=== PATIENT | male | born 1990 | race Two or more races ===

== ENCOUNTER 2019-07-18 06:45 | Observation (INO) | payer OTHER ==
[2019-07-18] VITALS (14 sets, daily range): BP systolic 120–157; BP diastolic 60–89
[~2019-07-18] VITALS: Ht 188 cm; Wt 100.2 kg
[~2019-07-18 06:45] MED LIST: NKM
[2019-07-18] MEDS ORDERED: Dexamethasone 20mg/5ml IVP ONE (07:00)
[2019-07-18] MEDS ORDERED: ceFAZolin sod 1 GM in NS 55 ML IVPB ONE (07:00)
[2019-07-18] MEDS ORDERED: Lidocaine 1% MPF 10mg/ml 5ml ONE ×2 (07:56→11:08)
[2019-07-18] MEDS ORDERED: Sodium Chloride 10ml vial INJ ONE (07:56)
[2019-07-18] MEDS ORDERED: Dexamethasone 4mg/ml vial ONE (07:56)
[2019-07-18] MEDS ORDERED: fentaNYL 100 mcg/2 mL IV ONE ×2 (07:59→10:40)
[2019-07-18] MEDS ORDERED: LR 1000ml 1,000 ML IVLG SCH (08:08)
--- NOTE | 2019-07-18 08:10 | Anethesia Preoperative Eval ---
Anesthesia Pre-op PMH/ROS General Date of Evaluation: Jul 18, 2019 Time of Evaluation: 09:09 Anesthesiologist: Negrito ASA Score: ASA 2 Mallampati Score Class I : Soft palate, uvula, fauces, pillars visible Class II: Soft palate, uvula, fauces visible Class III: Soft palate, base of uvula visible Class IV: Only hard plate visible Mallampati Classification: Class II Surgeon: Ailyn Diagnosis: Neck Pain Surgical Procedure: ACDF C6-7 Anesthesia History: none Family History: no anesthesia problems Allergies: Coded Allergies: No Known Allergies (Unverified , 07/18/19) Medications: see eMAR Patient NPO?: Yes NPO Date: Jul 17, 2019 NPO Time: 2300 Past Medical History Neurologic/Psychiatric: Reports: depression/anxiety Anesthesia Pre-op Phys. Exam Physician Exam Last Vital Signs Date Time Temp Pulse Resp B/P (MAP) Pulse Ox O2 Delivery O2 Flow Rate FiO2 07/18/19 07:45 Room Air 07/18/19 07:43 97.0 64 16 127/79 (95) 100 Constitutional: NAD Neurologic: CN 2-12 intact Cardiovascular: RRR Respiratory: CTA Gastrointestinal: S/NT/ND Airway Exam Mallampati Score: Class II MO: full ROM: full Teeth: intact Anesthesia Pre-op A/P Risk Assessment & Plan Assessment: ASA 2 Plan: GA, SED, GlideScope Go Status Change Before Surgery: No Pre-Antibiotics Dru Grams Ancef IV Given Within 1 Hr of Incision: Yes Time Given: 09:46 Shaji Mahan MD Jul 18, 2019 08:10
[2019-07-18] MEDS ORDERED: Ketorolac 30mg Inj IV PRN ×2 (08:15)
[2019-07-18] MEDS ORDERED: Labetalol 5mg/ml 20ml vial IV PRN (08:15)
[2019-07-18] MEDS ORDERED: LORazepam Inj 2mg/ml 1ml IV PRN (08:15)
[2019-07-18] MEDS ORDERED: DiphenhydrAMINE 50mg/ml Inj IVP PRN (08:15)
[2019-07-18] MEDS ORDERED: Midazolam 2mg/2ml Inj IVP PRN (08:15)
[2019-07-18] MEDS ORDERED: Acetaminophen (Non formulary) 100 ML IV ONE (08:15)
[2019-07-18] MEDS ORDERED: HYDROcodone/Acetamin 5/325 tab ORAL PRN (08:15)
[2019-07-18] MEDS ORDERED: Atropine Sulfate 0.4mg/ml inj IVP PRN (08:15)
[2019-07-18] MEDS ORDERED: Hydromorphone 0.5mg/0.5ml inj IVP PRN (08:15)
[2019-07-18] MEDS ORDERED: Meperidine 50mg/ml Inj(FOR RIGORS ONLY) IVP PRN (08:15)
[2019-07-18] MEDS ORDERED: oxyCODONE HCL/Acetaminophen 5/325mg ORAL PRN (08:15)
[2019-07-18] MEDS ORDERED: HYDROcodone/Acetamin 7.5/325 tab ORAL PRN (08:15)
[2019-07-18] MEDS ORDERED: fentaNYL 100 mcg/2 mL IV PRN (08:15)
[2019-07-18] MEDS ORDERED: Metoclopramide 10mg/2ml Inj IVP PRN (08:15)
--- NOTE | 2019-07-18 08:44 | Pre-Procedure Note/Attestation ---
Pre-Procedure Note/Attestation Complete Prior to Procedure Planned Procedure: not applicable Procedure Narrative: ADR possible ACDF C6-C7 anterior plate fixation Indications for Procedure Pre-Operative Diagnosis: cervical disk protrusion, radiculopathy upper extremity with neurological deficit Attestation I attest that I discussed the nature of the procedure; its benefits; risks and complications; and alternatives (and the risks and benefits of such alternatives ), prior to the procedure, with the patient (or the patient's legal employment program representative). I attest that, if there was a reasonable possibility of needing a blood transfusion, the patient (or the patient's legal employment program representative) was given the [place] Department [employer] Services standardized written summary, pursuant to the Toni Gino Blood Safety Act ([place] Health and Safety Code # 1645, as amended). I attest that I re-evaluated the patient just prior to the surgery and that there has been no change in the patient's H&P, except as documented below: Karthikeyan Robertson MD Jul 18, 2019 08:44
[2019-07-18] MEDS ORDERED: Thrombin 5000 units TOPIC ONE (08:54)
[2019-07-18] MEDS ORDERED: Gelfoam Size TOPIC ONE (08:54)
[2019-07-18] MEDS ORDERED: Bacitracin 50000 Units Vial ONE (08:55)
[2019-07-18] MEDS ORDERED: Sterile Water Irrig 1000ml IRRIG ONE (09:00)
[2019-07-18] MEDS ORDERED: Propofol 1,000mg/ 100ml btl IV ONE (09:00)
[2019-07-18] MEDS ORDERED: NS Irrig 1000ml ONE (09:00)
[2019-07-18] MEDS ORDERED: LR 1000ml ONE (09:00)
[2019-07-18] MEDS ORDERED: Zemuron 50mg/5ml Inj IV ONE (09:01)
[2019-07-18] MEDS ORDERED: Lidocaine 1% Plain 30 ml INJ ONE (09:15)
--- NOTE | 2019-07-18 09:31 | Immediate Post-Op Evaluation ---
Immediate Post-Op Evalulation Immediate Post-Op Evalulation Procedure: ACDF C 6-7 Date of Evaluation: Jul 18, 2019 Time of Evaluation: 12:24 IV Fluids: 1000 LR Blood Products: 0 Estimated Blood Loss: 50 Urinary Output: 0 Blood Pressure Systolic: 149 Blood Pressure Diastolic: 86 Pulse Rate: 82 Respiratory Rate: 16 O2 Sat by Pulse Oximetry: 100 Temperature (Fahrenheit): 97 Pain Score (1-10): 3 Nausea: No Vomiting: No Complications 0 Patient Status: awake, reacts, patent, extubated, none Hydration Status: adequate Dru Grams Ancef IV Given Within 1 Hr of Incision: Yes Time Given: 09:46 Shaji Mahan MD Jul 18, 2019 09:31
--- NOTE | 2019-07-18 09:32 | 48 Hour Post Anesthesia Eval ---
Post Anesthesia Evaluation Procedure: ACDF C 6-7 Date of Evaluation: Jul 18, 2019 Time of Evaluation: 14:42 Blood Pressure Systolic: 127 0: 72 Pulse Rate: 81 Respiratory Rate: 18 Temperature (Fahrenheit): 97.6 O2 Sat by Pulse Oximetry: 99 Airway: patent Nausea: No Vomiting: No Pain Intensity: 3 Hydration Status: adequate Cardiopulmonary Status: Stable Mental Status/LOC: patient returned to baseline Follow-up Care/Observations: 0 Post-Anesthesia Complications: 0 Follow-up care needed: ready to discharge Shaji Mahan MD Jul 18, 2019 09:32
[2019-07-18] MEDS ORDERED: HYDROmorphone 1mg/ml Carpuject SUBQ PRN (10:30)
[2019-07-18] MEDS ORDERED: oxyCODONE 5mg IR tab ORAL PRN (10:30)
[2019-07-18] MEDS ORDERED: Morphine Sulfate 4mg/ml Inj (IV USE ONLY) IM PRN (10:30)
[2019-07-18] MEDS ORDERED: Glycopyrrolate 0.2mg/ml 1ml Vial ONE (11:32)
--- NOTE | 2019-07-18 11:43 | Brief Operative Note ---
Immediate Post Operative Note Operative Note Pre-op Diagnosis: cervical disk protrusion, radiculopathy upper extremity with neurological deficit Procedure: ACDF C6-C7 Anterior Plate Fixation Post-op Diagnosis: same as pre-op Findings: consistent w/pre-op dx studies Surgeon: Ailyn Ph.D., M.D. [employer] Help: Katie HAYWOOD Anesthesiologist: Negrito BECK Anesthesia: general Specimen: yes Complications: none Condition: stable Fluids: anesthesia Estimated Blood Loss: minimal Implant(s) used?: Yes Karthikeyan Robertson MD Jul 18, 2019 11:43
[2019-07-18] MEDS ORDERED: Naloxone 0.4mg/ml Inj IVP PRN (11:45)
[2019-07-18] MEDS ORDERED: Morphine Sulfate 2mg/ml Inj(IV/IM USE ONLY) IM PRN (13:30)
--- NOTE | 2019-07-18 13:30 | NUR ---
NURSE NOTES: Received report from Ileana Lovell SUPERINTENDENT CEMETERY. Rounding done with outgoing nurse. Pt a/o x 4, in bed. No respiratory distress noted. Pt on O2 2L. Denies any pain at this time. /Mother is at bedside. Neck surgical site dressing is C/D/I. Unit orientation was given. Bed in lowest position, call light within reach. Will continue to monitor.
[2019-07-18] MEDS: D5 1/2NS 1,000 ML IV SCH ×2 (15:50→21:45)
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
--- NOTE | 2019-07-18 17:09 | Diagnostic Imaging Report ---
INDICATION: Pain, intraoperative TECHNIQUE: Intraoperative imaging Fluoroscopy time: 26.4 seconds Total dose: 0.12271 mGym2 Total number of images: 4 COMPARISON: None FINDINGS: Intraoperative images demonstrate surgical tool projected at the anterior aspect of the C6-7 disc. Subsequent images document placement of anterior fusion hardware at C6-7 IMPRESSION: Intraoperative imaging, as described
--- NOTE | 2019-07-18 17:34 | NUR ---
NURSE NOTES: Pt ambulated hallway x1 with RN assistance. Denies any neck pain at this time.
[2019-07-18] MEDS: Chloraseptic Spray 20mL Bottle ORAL PRN (17:44)
[2019-07-18] MEDS: ceFAZolin sod 1 GM in D5W 55 ML IV SCH (17:44)
--- NOTE | 2019-07-18 17:45 | Operative Note - Dictated ---
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 OPERATIVE PROCEDURE: 1. Anterior cervical diskectomy with fusion C6-C7 with anterior internal plate fixation. 2. SSEP monitoring. 3. High-powered microscopic dissection. SURGEON: Karthikeyan Robertson, PhD, MStacy. YARN HANDLER: YOBANY Carranza ANESTHESIOLOGIST: Shaji Mahan M.D. ANESTHESIA: General with intubation. ESTIMATED BLOOD LOSS: Less than 50 mL. COMPLICATIONS: None. POSTOPERATIVE CONDITION: Good/stable. DESCRIPTION OF PROCEDURE: The patient was brought to the operating room and in the supine position, general anesthesia with intubation was induced. IV antibiotics, IV Decadron were administered 30 minutes prior to incision time. In the supine position, a spinal needle to avoid penetration to the skin was taped to the right lateral aspect of the neck with cross-table imaging obtained, interpreted by surgeon demonstrating prep under high-power procedure, x-ray interpretation Dr. Robertson. A cross-table radiograph was obtained demonstrating the correct level for incision placement. Level was marked on the left side of the neck transverse with sterile marking pen. The spinal needle that had been taped to the skin was removed. Anterior cervical spine was sterilely prepped and draped free in usual sterile fashion. Transverse incision with appropriate position through dermis and epidermis. Electrocautery dissection was carried through the subcutaneous tissue to the level of the platysmas muscle was identified, isolated, and transected in line with the incision. Blunt dissection was carried medial to the left sternocleidomastoid and medial to the carotid sheath through the deep cervical and pretracheal fascia to the midline between the right and left longus colli muscles. Spinal needle was bent at right angles 3 mm maximum penetration in the disk space. This was placed under direct observation into the disk [id number]. Cross-table image was obtained demonstrating the correct level at C6-C7. Under high-power magnification, small annulotomy was performed followed with diskectomy to a maximum depth of 3 mm. Marked with a marking pen. Longus coli muscles were subperiosteally elevated 3 mm in the mediolateral extent followed with retractor placement. Annulotomy was performed. Diskectomy to the posterior longitudinal ligament. The posterior longitudinal ligament identified with retrieval of disk fragments. Decompression undertaken. SSEP monitoring stable at all times. No cerebrospinal fluid leakage. No dural tears noted anytime during the procedure. The endplates were denuded with curettage of their cartilaginous endplates. The anatomy of the inferior aspect of the C6 vertebral body was modified to accommodate a flat surface with noted anatomy precluding artificial disk placement. Subchondral bone was maintained integrity. Appropriate trials utilized with termination with fluoroscopic guidance and direct observation the appropriate size. The titanium graft to the appropriate dimensions. Under sterile conditions, was packed with STEVE-4 osteopromotive material. Graft was introduced under high-power magnification into the disk space. Cross-table imaging was obtained demonstrating excellent alignment and position. All traction on the neck (10 pounds) was removed. Anterior internal plate fixation in a compressive fashion was undertaken with 16 mm screws titanium. Locked into position. Fluoroscopic imaging obtained and the AP and lateral planes demonstrating excellent alignment and positioning. The wound was irrigated with antibiotic-containing saline. FloSeal applied. Reapproximation of the platysmas muscle with inverted interrupted sutures of Vicryl suture material. Subsequent reapproximation dermis and epidermis with a running subcuticular suture followed with transverse surgical strips, sterile bandage, maintained in place with tape. The patient was awakened in the operating room, transported to postop recovery in good stable condition. Karthikeyan Robertson M.D. DR: MECCA JOB#: [id number] CC:
[2019-07-18] MEDS ORDERED: OXYCODONE HCL10 MG ORAL (18:21)
[2019-07-18] MEDS ORDERED: CHLORASEPTIC1 SPRAY ORAL (18:23)
--- NOTE | 2019-07-18 18:58 | Cardiology Progress Note ---
Assessment/Plan Assessment/Plan urinary retntion possible ralted to meds in and aout cath observe psot to maek sure able to urinate priro to dc home [id number] Objective Last 24 Hour Vital Signs Date Time Temp Pulse Resp B/P (MAP) Pulse Ox O2 Delivery O2 Flow Rate FiO2 07/18/19 15:30 97.6 89 20 122/81 (95) 96 07/18/19 14:42 Nasal Cannula 3.0 07/18/19 14:30 97.0 99 18 136/83 (100) 98 07/18/19 14:00 97.2 74 20 120/71 (87) 99 07/18/19 13:35 97.4 63 18 151/89 (109) 100 07/18/19 13:30 97.4 63 18 151/89 (109) 100 07/18/19 13:08 97.0 07/18/19 13:05 97.0 82 16 143/83 100 Nasal Cannula 3 07/18/19 12:50 67 16 134/79 100 Nasal Cannula 3 07/18/19 12:35 66 16 127/85 100 Nasal Cannula 3 07/18/19 12:25 62 12 147/83 100 Nasal Cannula 3 07/18/19 12:20 68 14 145/88 100 Nasal Cannula 3 07/18/19 12:15 71 17 144/84 100 Simple Mask 6 07/18/19 12:13 97.0 60 24 157/60 100 Simple Mask 6 07/18/19 12:11 81 18 99 07/18/19 12:10 82 16 100 07/18/19 07:45 Room Air 07/18/19 07:43 97.0 64 16 127/79 (95) 100 Jori Kirby MD Jul 18, 2019 18:58
--- NOTE | 2019-07-18 19:00 | NUR ---
NURSE NOTES: Pt stat he feels that bladder is full. Abdominal distention noted. Bladder scan was done. Results 764ml. Dr. Kirby was notified. ordered doing in and out cath and if pt voids after in and out cath, pt can be home. Noted and carried out.
--- NOTE | 2019-07-18 19:10 | NUR ---
NURSE NOTES: In and out catheter was done. (800ml was empty).
--- NOTE | 2019-07-18 19:36 | NUR ---
HAND-OFF: Report given to JACOBY Mike. Pt is stable.
--- NOTE | 2019-07-18 20:14 | NUR ---
nurse's notes: received patient lying in bed with by the bedside awake alert and oriented; admits to a 6/10 pain in the anterior surgical site and also at the nape; offered pain medication but deferred for now; otherwise, denies any distress. straight cath done by day shift RN Maryanne Crisostomo with 800cc out; plan to do bladder scan post void. will continue to monitor until stable for discharge.
[2019-07-18] MEDS: oxyCODONE 5mg IR tab ORAL PRN (20:29)
--- NOTE | 2019-07-18 20:38 | NUR ---
nurse's notes: assisted patient to the bathroom; has the urgency to urinate; 300 cc out ; PVR max was 551 cc. will inform PMD.
--- NOTE | 2019-07-18 20:52 | NUR ---
nurse's notes: called dr. simpson who answered the call himself; informed him of PVR of 551cc; new orders to give flomax and keep patient overnight for observation; Dr. simpson to inform dr. pulido. informed patient about new orders; all questions answered; patient and agreeable to new plan of care. will closely monitor.
[2019-07-18] MEDS ORDERED: Tamsulosin 0.4mg cap ORAL SCH (21:00)
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
[2019-07-19] VITALS: BP 116/57
[2019-07-19] MEDS: oxyCODONE 5mg IR tab ORAL PRN ×2 (00:54→06:54)
[2019-07-19] MEDS: Chloraseptic Spray 20mL Bottle ORAL PRN (01:00)
[2019-07-19] MEDS: ceFAZolin sod 1 GM in D5W 55 ML IV SCH (01:02)
[2019-07-19 04:00] VITALS: BP 104/71
[2019-07-19] MEDS: D5 1/2NS 1,000 ML IV SCH (04:54)
--- NOTE | 2019-07-19 05:47 | NUR ---
nurse's notes: still monitoring PVR; patient able to urinate but continues to have residuals >300; pain managed well with ordered oral medications with good results. vitals stable; afebrile; resting comfortably
--- NOTE | 2019-07-19 07:07 | NUR ---
nurse's notes: patient states that the feeling of urgency and retention has resolved; urine is yellow in color, normal characteristics noted; last PVR was 137ml
[2019-07-19 08:00] VITALS: BP 125/68
--- NOTE | 2019-07-19 08:00 | NUR ---
NURSE NOTES: Received pt from Cee, Pt was sitting comfortably waiting for discharge. call light w/in reach. is at bedside
[2019-07-19] MEDS ORDERED: Tamsulosin 0.4mg cap ORAL SCH ×2 (08:03→21:00)
--- NOTE | 2019-07-19 09:20 | NUR ---
NURSE NOTES: discharge the pt with stable condition with family. dressing on the neck was clean and dry. activity instruction was given by doctor yesterday. pt is aware.
--- NOTE | 2019-07-19 10:14 | Progress Note ---
DATE: 07/19/2019 ACUTE PAIN MANAGEMENT PHYSICIAN PROGRESS NOTE MEDICATIONS: Medication administration record reviewed. Medications include Tylenol, Fioricet, Mylanta, Soma, Catapres, Benadryl, Pepcid, Dilaudid, morphine, Narcan, Zofran, oxycodone, Chloraseptic spray, Flomax. LABORATORY STUDIES: No interval laboratory studies. OBJECTIVE: VITAL SIGNS: Within normal limits. Afebrile, pulse 70, respirations 16, blood pressure 104/71, oxygen saturation 98% on room air. I spent over 60 minutes in consultation today. I saw the patient at the bedside with his and mother. I discussed the case with the surgeon, Dr. Robertson along with the nurse RN, Don. The patient was unable to be discharged home yesterday postoperatively as he had urinary retention issues. He was dosed repeatedly with Flomax and after multiple voiding efforts, the patient now has a postvoid residual less than 150 mL. Certainly, this was accepted probably before discharge in this healthy 28-year-old gentleman. We will dose him again this morning before we discharge him to home in the care of his . The patient's neck dressing appears clean and dry. He is swallowing, breathing, and phonating within normal limits. He is tolerating regular breakfast with scrambled eggs and toast this morning. He does have significant anxiety and I tried to reassure him and recommend that his will reassure him, has been using chemical anxiolysis such benzodiazepine. The patient has been tolerating oral oxycodone without any nausea or side effects. The patient has a good supply of oxycodone for home usage. I encourage continued incentive spirometer usage for good pulmonary toilet. I also recommended ambulation for DVT prophylaxis. The patient will follow up with Dr. Robertson in the outpatient surgical clinic within the next two weeks for surgical followup. The patient has excellent support with his and mother, who will be staying with the patient and his for next week in the [facility]. I see no contraindication for discharge trial home at this time. Orlando Berry M.D. DR: DENIS JOB#: [id number] CC:
== END 2019-07-19 11:13 | disposition home or self-care (01) ==
LOC: SUR 06:45 → CMPBEDREQ 13:44 → EDBEDREQ 13:46 → 3E 14:03
DX: M50.123 Cervical disc disorder at C6-C7 level with radiculopathy (principal); R33.9 Retention of urine, unspecified; F32.9 Major depressive disorder, single episode, unspecified; F41.9 Anxiety disorder, unspecified; Z87.891 Personal history of nicotine dependence
CPT/HCPCS: 22551; 36415; 72040; 76000; 86850; 86900; 86901; 87081; C1713; J0690; J1100; J1170; J2001; J2250; J2405; J2704; J3010; 94003; 94150

== ENCOUNTER 2019-07-22 15:59 | Emergency (ER) | payer OTHER ==
[~2019-07-22] VITALS: Ht 188 cm; Wt 91.6 kg
[~2019-07-22 15:59] MED LIST changes: +CHLORASEPTIC1 SPRAY ORAL; +OXYCODONE HCL10 MG ORAL
[2019-07-22 16:10] VITALS: BP 140/90
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
[2019-07-22] MEDS ORDERED: Gadavist 7.5mMol/7.5ml vial IV PRN (16:30)
[2019-07-22 16:50] LABS: BASOPHILS % (AUTO) 1.1 % (0.0-2.0); EOSINOPHILS % (AUTO) 1.6 % (0.0-3.0); HEMATOCRIT 45.5 % (42.0-52.0); HEMOGLOBIN 15.1 G/DL (14.2-18.0); LYMPHOCYTES % (AUTO) 24.3 % (20.0-45.0); MEAN CORPUSCULAR VOLUME 81 FL (80-99); PLATELET COUNT 227 K/UL (150-450); RED BLOOD COUNT 5.64 M/UL (4.70-6.10); RED CELL DISTRIBUTION WIDTH 11.6 % (11.6-14.8); WHITE BLOOD COUNT 7.8 K/UL (4.8-10.8)
[2019-07-22 17:20] LABS: ANION GAP 9 mmol/L (5-15); BLOOD UREA NITROGEN 13 mg/dL (7-18); CALCIUM 9.6 MG/DL (8.5-10.1); CARBON DIOXIDE 30 MMOL/L (21-32); CHLORIDE 104 MMOL/L (98-107); CREATININE 0.9 MG/DL (0.55-1.30); POTASSIUM 4.1 MMOL/L (3.5-5.1); SODIUM 143 MMOL/L (136-145)
[2019-07-22 17:24] LABS: ALANINE AMINOTRANSFERASE 54 U/L (12-78); ALBUMIN 3.9 G/DL (3.4-5.0); ALBUMIN/GLOBULIN RATIO 1.1 (1.0-2.7); ALKALINE PHOSPHATASE 60 U/L (46-116); ASPARTATE AMINO TRANSFERASE 24 U/L (15-37); BILIRUBIN,TOTAL 0.5 MG/DL (0.2-1.0)
[2019-07-22] MEDS ORDERED: LIDODERM700 M1 TOPIC (17:58)
[2019-07-22 18:08] VITALS: BP 136/90
[2019-07-22 18:25] VITALS: BP 136/90
--- NOTE | 2019-07-22 18:25 | NUR ---
ED Nurse Note: Pt cleared by ERMD for discharge. DC instructions/prescription was given and explained to pt and verbalized understanding of teachings. All medical devices such as ID band and IV line removed. Pt is AAO x4, ambulatory and left with all personal belongings.
--- NOTE | 2019-07-22 20:37 | Emergency Room Report ---
History of Present Illness General Chief Complaint: Dizziness Source: Patient, Medical Record Present Illness HPI Patient is a 28-year-old male who presents after increased left hand numbness. Patient had prior history of recent surgery to his neck. He had a cervical discectomy and fusion performed by Dr. Robertson. Patient has been having some difficulty with his pain medications. He states he had been having some issues with breathing when he took the full dose. He denies any fever. He had not been vomiting but having some nausea. He reports having no weakness to his extremity. Numbness was localized to the left small finger as well as the left ring finger half Allergies: Coded Allergies: No Known Allergies (Unverified , 07/18/19) Patient History Reviewed Nursing Documentation: PMH: Agreed; PSxH: Agreed Nursing Documentation-PMH Past Medical History: No History, Except For Hx Cardiac Problems: No Hx Cancer: No Hx Gastrointestinal Problems: No Physical Exam Vital Signs Date Time Temp Pulse Resp B/P (MAP) Pulse Ox O2 Delivery O2 Flow Rate FiO2 07/22/19 16:07 98.4 92 18 133/86 (102) 95 Room Air General Appearance: well appearing, no apparent distress, alert, GCS 15 Head: normocephalic, atraumatic ENT: hearing grossly normal, normal voice Neck: supple, limited range of motion - left side anterior incision Respiratory: lungs clear, no respiratory distress, speaking full sentences Cardiovascular #1: normal inspection Gastrointestinal: normal inspection Musculoskeletal: normal inspection, back normal Neurologic: normal inspection, alert, oriented x3, responsive, 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 Differential diagnosis include was not limited to vasovagal episode, hypotension from medication, allergic reaction , pneumothorax among others. Because of complexity of patient's case laboratory testing was ordered. EKG interpreted by me showed normal sinus rhythm without acute ST or T wave changes. Patient is noted to have normal breath sounds and absent exam. Patient was noted to have some anxiety regarding postop care. His incision does not appear to be grossly enlarged or have any significant swelling. Patient was discussed with his surgeon Dr. Robertson who suggested that he follow-up tomorrow in the clinic and not have MRI. Patient appears stable for close outpatient follow up. Patient was discharged home. He was given prescription for lidocaine Patient is advised to return if worse. Labs Test 07/22/19 16:34 White Blood Count 7.8 K/UL (4.8-10.8) Red Blood Count 5.64 M/UL (4.70-6.10) Hemoglobin 15.1 G/DL (14.2-18.0) Hematocrit 45.5 % (42.0-52.0) Mean Corpuscular Volume 81 FL (80-99) Mean Corpuscular Hemoglobin 26.8 PG (27.0-31.0) Mean Corpuscular Hemoglobin Concent 33.2 G/DL (32.0-36.0) Red Cell Distribution Width 11.6 % (11.6-14.8) Platelet Count 227 K/UL (150-450) Mean Platelet Volume 7.0 FL (6.5-10.1) Neutrophils (%) (Auto) 66.0 % (45.0-75.0) Lymphocytes (%) (Auto) 24.3 % (20.0-45.0) Monocytes (%) (Auto) 7.0 % (1.0-10.0) Eosinophils (%) (Auto) 1.6 % (0.0-3.0) Basophils (%) (Auto) 1.1 % (0.0-2.0) Sodium Level 143 MMOL/L (136-145) Potassium Level 4.1 MMOL/L (3.5-5.1) Chloride Level 104 MMOL/L (98-107) Carbon Dioxide Level 30 MMOL/L (21-32) Anion Gap 9 mmol/L (5-15) Blood Urea Nitrogen 13 mg/dL (7-18) Creatinine 0.9 MG/DL (0.55-1.30) Estimat Glomerular Filtration Rate > 60 mL/min (>60) Glucose Level 103 MG/DL (74-106) Calcium Level 9.6 MG/DL (8.5-10.1) Total Bilirubin 0.5 MG/DL (0.2-1.0) Aspartate Amino Transf (AST/SGOT) 24 U/L (15-37) Alanine Aminotransferase (ALT/SGPT) 54 U/L (12-78) Alkaline Phosphatase 60 U/L (46-116) Total Protein 7.6 G/DL (6.4-8.2) Albumin 3.9 G/DL (3.4-5.0) Globulin 3.7 g/dL Albumin/Globulin Ratio 1.1 (1.0-2.7) EKG Diagnostic Results Rate: normal Rhythm: NSR ST Segments: no acute changes Last Vital Signs Date Time Temp Pulse Resp B/P (MAP) Pulse Ox O2 Delivery O2 Flow Rate FiO2 07/22/19 18:25 97.9 66 18 136/90 99 Room Air Status: improved Disposition: HOME, SELF-CARE Condition: Stable Scripts Lidocaine Patch* (Lidoderm Patch*) 1 Each Adh..patch 1 PATCH TOPIC DAILY, #30 PATCH Patch(es) may remain in place for up to 12 hours in any 24-hour period. Prov: James Napier MD 07/22/19 Patient Instructions: Anterior Cervical Diskectomy and Fusion, Dizziness Additional Instructions: Folllow up with Dr. Robertson tomorrow. Return if any worsening. James Napier MD Jul 22, 2019 20:37
== END 2019-07-22 18:25 | disposition home or self-care (01) ==
LOC: EMR 16:41
DX: G56.22 Lesion of ulnar nerve, left upper limb (principal); R42 Dizziness and giddiness
CPT/HCPCS: 36415; 80053; 85025; 99283